=== PATIENT | female | born 1955 | race Caucasian/White ===

== ENCOUNTER → 2017-10-05 | Outpatient (CLI) | payer OTHER | LOC: FIMAGING 15:27 | PROVIDERS: ATTEND Internal Medicine | DX: M20.11 Hallux valgus (acquired), right foot (principal); M20.12 Hallux valgus (acquired), left foot; M21.611 Bunion of right foot; M21.612 Bunion of left foot; M79.641 Pain in right hand; M79.642 Pain in left hand; M05.9 Rheumatoid arthritis with rheumatoid factor, unspecified ==